=== PATIENT | male | born 1960 | race Caucasian/White ===

== ENCOUNTER → 2016-12-05 | Outpatient (CLI) | payer MEDICARE, BC | LOC: RAD 14:11 | DX: M06.9 Rheumatoid arthritis, unspecified (principal); M48.00 Spinal stenosis, site unspecified; R45.4 Irritability and anger | CPT/HCPCS: 73522 ==

== ENCOUNTER → 2017-02-21 | Outpatient (CLI) | payer MEDICARE, BC | LOC: KOH-I 08:00 | DX: M25.551 Pain in right hip (principal); M89.8X5 Other specified disorders of bone, thigh; R93.7 Abnormal findings on diagnostic imaging of other parts of musculoskeletal system | CPT/HCPCS: 73721 ==

== ENCOUNTER → 2020-12-19 | Outpatient (CLI) | payer MEDICARE, BC, OTHER | LOC: EXRD 10:27 | DX: M81.0 Age-related osteoporosis without current pathological fracture (principal) | CPT/HCPCS: 77080 ==